=== PATIENT | male | born 1995 | race African-American/Black ===

== ENCOUNTER 2024-07-23 17:10 | Emergency (ER) | payer MEDICAID, OTHER ==
[~2024-07-23] VITALS: Ht 165.1 cm; Wt 64.0 kg
[2024-07-23 17:12] VITALS: O2SAT 99
[2024-07-23] MEDS ORDERED: AMOX1TAB16 MT (17:54)
[2024-07-23] MEDS ORDERED: IBUP-2030 MT (17:54)
[2024-07-23] MEDS: KETOROLAC 30MG/ML VIAL IM ONE (18:05)
[2024-07-23] MEDS: ACETAMINOPHEN 500MG TABLET PO ONE (18:06)
[2024-07-23 18:17] VITALS: BP 164/93; PULSE 98; RESP 16; TEMP 37.6; O2SAT 97
== END 2024-07-23 18:20 | disposition home or self-care (01) ==
LOC: ER 17:10
DX: K01.1 Impacted teeth (principal); F10.90 Alcohol use, unspecified, uncomplicated; Z79.899 Other long term (current) drug therapy
CPT/HCPCS: 99283; 96372; J1885

== ENCOUNTER 2024-07-25 18:08 | Emergency (ER) | payer MEDICAID ==
[~2024-07-25] VITALS: Ht 170.2 cm; Wt 68.0 kg
[~2024-07-25 18:08] MED LIST: AMOX1TAB16 MT; IBUP-2030 MT
[2024-07-25 18:17] VITALS: O2SAT 98
[2024-07-25] MEDS: SODIUM CHLORIDE 0.9% (SEPSIS BOLUS) IV ONE (18:48)
[2024-07-25] MEDS: PIPERACILLIN/TAZO 3.375G/50ML 50 ML IV ONE (18:48)
[2024-07-25 19:05] LABS: HEMATOCRIT. 41.3 % (42.0-52.0); HEMOGLOBIN. 13.4 g/dL (14.0-18.0); MEAN CORPUSCULAR HEMOGLOBIN 27.6 pg (28.0-32.0); MEAN CORPUSCULAR HGB CONC 32.6 g/dL (31.0-37.0); MEAN CORPUSCULAR VOLUME 84.8 fL (80.0-94.0); MEAN PLATELET VOLUME 8.3 fl (7.4-10.4); PLATELET 328 x1000/uL (130-400); RED BLOOD CELL COUNT 4.87 mill/uL (4.7-6.1); RED CELL DISTRIBUTION WIDTH 13.8 % (11.6-14.6); WHITE BLOOD COUNT 15.4 x1000/uL (4.5-11.0)
[2024-07-25 19:08] LABS: CHLORIDE 96 mEq/L (98-107); POTASSIUM 3.2 mEq/L (3.5-5.1); SODIUM 134 mEq/L (136-145)
[2024-07-25 19:09] LABS: CARBON DIOXIDE 28 mEq/L (21-32); DIFFERENTIAL COMMENT 1
[2024-07-25 19:10] LABS: CALCIUM 9.5 mg/dL (8.7-10.4)
[2024-07-25 19:14] LABS: GLUCOSE 142 mg/dL (70-105); UREA NITROGEN BLOOD < 5 mg/dL (9-23)
[2024-07-25] MEDS: VANCOMYCIN 1G PREMIX 200 ML IV ONE (19:14)
[2024-07-25] MEDS: MORPHINE SULFATE 4 MG/ML INJ (FOR IV/IM USE) IV STA ×2 (19:14→21:02)
[2024-07-25] MEDS: ONDANSETRON HCL 4MG/2ML INJ IV STA (19:14)
[2024-07-25 19:30] LABS: INR 1.1; PROTHROMBIN TIME 11.9 sec (9.6-11.0)
[2024-07-25 20:14] LABS: PLATELET ESTIMATE NORMAL
[2024-07-25] MEDS: DEXAMETHASONE 10 MG/ML VIAL IV ONE (22:17)
[2024-07-25] MEDS: LIDOCAINE HCL/EPINEPHRINE 1%-EPI 1:100,000 20ML VIAL INFIL ONE (23:09)
[2024-07-26] MEDS: KETOROLAC 30MG/ML VIAL IV ONE (00:28)
[2024-07-26] MEDS: ACETAMINOPHEN 1000MG/100ML 100 ML IV ONE (00:35)
[2024-07-26] MEDS: IOHEXOL-300 100 ML BOTTLE ONE (05:08)
[2024-07-26] MEDS: ONDANSETRON HCL 4MG/2ML INJ IV ONE (08:38)
[2024-07-26] MEDS: MORPHINE SULFATE 4 MG/ML INJ (FOR IV/IM USE) IV ONE (08:38)
[2024-07-26] MEDS: PIPERACILLIN/TAZO 3.375G/50ML 50 ML IV SCH (14:31)
[2024-07-26] MEDS ORDERED: VANCOMYCIN 1G PREMIX 200 ML IV SCH (15:00)
[2024-07-26] MEDS ORDERED: VANCOMYCIN 1000MG/250ML 250 ML IV SCH (15:15)
[2024-07-26] MEDS ORDERED: PIPERACILLIN/TAZO 3.375G/50ML 50 ML IV SCH (15:15)
[2024-07-26] MEDS ORDERED: NOREPINEPHRINE 8MG/250ML PMX 250 ML IV ONE (15:15)
[2024-07-26 16:30] VITALS: BP 105/65; PULSE 70; RESP 14; TEMP 36.9; O2SAT 97
[2024-07-27] MEDS ORDERED: VANCOMYCIN 1000MG/250ML 250 ML IV SCH (01:00)
== END 2024-07-26 17:30 | disposition admitted as inpatient to this hospital (09) ==
LOC: ER 18:08
DX: J36 Peritonsillar abscess (principal); R25.2 Cramp and spasm; Z79.899 Other long term (current) drug therapy
CPT/HCPCS: 80048; 83605; 85025; 85610; 87040; 36415; 84145; 70487; 42700; 96367 ×2; 96365; 96366 ×2; 96375 ×2; 96376 ×2; 99291; 96368; J1100; J2004; J2405 ×2; J2543 ×2; J3370; J2270 ×2; J7030; Z7610 ×6; Q9967; J1885; J0131

== ENCOUNTER 2024-12-26 16:55 | Emergency (ER) | payer MEDICAID, OTHER ==
[~2024-12-26] VITALS: Ht 172.7 cm; Wt 91.0 kg
[2024-12-26 17:23] VITALS: TEMP 36.9; O2SAT 95
[2024-12-26 18:56] VITALS: BP 124/76; PULSE 71; RESP 18
[2024-12-26] MEDS: IBUPROFEN 800MG TABLET PO ONE (18:56)
[2024-12-26 20:22] LABS: CLARITY URINE CLEAR (CLEAR); COLOR URINE YELLOW (YELLOW); GLUCOSE URINE 2+ (NEGATIVE); KETONES URINE NEGATIVE (NEGATIVE); LEUKOCYTE ESTERASE URINE NEGATIVE (NEGATIVE); NITRITE URINE NEGATIVE (NEGATIVE); OCCULT BLOOD URINE TRACE (NEGATIVE); PH URINE 5.5 (4.5-8.0); PROTEIN URINE NEGATIVE (NEGATIVE); SPECIFIC GRAVITY URINE 1.021 (1.005-1.030); UROBILINOGEN URINE 0.2 E.U./dL (0.2-1.0)
[2024-12-26 20:25] LABS: BASOPHILS % 0.6 % (0.0-2.0); EOSINOPHILS % 1.5 % (0.0-5.0); HEMATOCRIT. 41.5 % (42.0-52.0); HEMOGLOBIN. 13.2 g/dL (14.0-18.0); LYMPHOCYTES % 23.0 % (20.0-50.0); MEAN PLATELET VOLUME 8.5 fl (7.4-10.4); MONOCYTES % 13.3 % (2.0-8.0); NEUTROPHILS % 61.6 % (40.0-76.0); PLATELET 255 x1000/uL (130-400); RED BLOOD CELL COUNT 4.78 mill/uL (4.7-6.1); RED CELL DISTRIBUTION WIDTH 13.9 % (11.6-14.6)
[2024-12-26 20:34] LABS: CREATININE 0.8 mg/dL (0.6-1.3)
[2024-12-26 20:35] LABS: UREA NITROGEN BLOOD 5 mg/dL (9-23)
[2024-12-26 20:36] LABS: ASPARTATE AMINOTRANSFERASE 40 IU/L (<34); BILIRUBIN DIRECT 0.2 mg/dL (<=3.0)
[2024-12-26 20:37] LABS: BILIRUBIN TOTAL 0.6 mg/dL (0.1-1.0); PROTEIN TOTAL 6.6 g/dL (6.0-8.3)
[2024-12-26 21:10] LABS: BACTERIA URINE NONE SEEN; MUCUS URINE 1+ /lpf (NONE/TRACE); RBC URINE 0-2 /hpf (0-2); SQUAMOUS EPITHELIAL CELL URINE NONE SEEN /lpf (RARE/1+); WBC URINE 0-2 /hpf (0-2)
[2024-12-26] MEDS: METFORMIN HCL 500MG TABLET PO ONE (21:37)
== END 2024-12-26 21:36 | disposition home or self-care (01) ==
LOC: ER 16:55
DX: R73.9 Hyperglycemia, unspecified (principal)
CPT/HCPCS: 36415; 74176; 80048; 80076; 81003; 85025; 99284